=== PATIENT | male | born 1965 | race Caucasian/White ===

== ENCOUNTER 2020-10-03 09:21 | Emergency (ER) | payer SELFPAY ==
[~2020-10-03] VITALS: Ht 185.4 cm; Wt 81.0 kg
[2020-10-03] MEDS ORDERED: cephalexin 500mg capsule PO ONE (09:35)
[2020-10-03] MEDS ORDERED: CEPH-585 PO (09:45)
--- NOTE | 2020-10-03 10:31 | NUR ---
PT MOVED TO ROOM 15, REPORT TO RN, PT IS CALM AND COOPERATIVE, AWARE OF PLAN TO BE EVALUATED BY PROVIDER AND [facility], PT IS AWARE HE NEEDS TO REMAIN IN ROOM, DENIES SUICIDAL\HOMICIDAL THOUGHTS/PLAN
--- NOTE | 2020-10-03 10:50 | NUR ---
[facility] [phone]
[2020-10-03 11:06] LABS: BASOPHILS # (AUTO) 0.1 X10'3 (0-0.2); BASOPHILS % (AUTO) 0.6 % (0-1); EOSINOPHILS % (AUTO) 0.1 % (0-6); HEMATOCRIT 43.4 % (42.0-52.0); HEMOGLOBIN 14.5 g/dl (14.0-17.9); LYMPHOCYTES # (AUTO) 0.9 X10'3 (1.1-4.8); LYMPHOCYTES % (AUTO) 6.6 % (21-51); MEAN CORPUSCULAR HEMOGLOBIN 35.2 PG (27.0-31.0); MEAN CORPUSCULAR HGB CONC 33.3 g/dL (33.0-36.5); MEAN CORPUSCULAR VOLUME 105.6 FL (78-98); MEAN PLATELET VOLUME 7.9 FL (7.4-10.4); MONOCYTES # (AUTO) 1.5 X10'3 (0-0.9); NEUTROPHILS # (AUTO) 11.1 X10'3 (1.8-7.7); NEUTROPHILS % (AUTO) 81.7 % (42-75); PLATELET COUNT 263 X10'3 (140-440); RED BLOOD COUNT 4.11 X10'6 (4.70-6.10); RED CELL DISTRIBUTION WIDTH 13.3 % (11.5-14.5); WHITE BLOOD COUNT 13.6 X10'3 (4.5-11.0)
[2020-10-03 11:16] LABS: ALKALINE PHOSPHATASE 67 IU/L (46-116); eGFR 59 ML/MIN
[2020-10-03 11:25] LABS: ALANINE AMINOTRANSFERASE 22 U/L (12-78); ALBUMIN 4.4 G/DL (3.4-5.0); ALBUMIN/GLOBULIN RATIO 1.3 (1.1-1.5); ANION GAP 13 (8-16); ASPARTATE AMINO TRANSFERASE 38 U/L (10-37); BILIRUBIN,TOTAL 0.9 MG/DL (0.1-1.0); BLOOD UREA NITROGEN 28 MG/DL (7-18); CALCIUM 9.4 MG/DL (8.5-10.1); CHLORIDE 105 MMOL/L (99-107); CREATININE 1.27 MG/DL (0.60-1.10); GLUCOSE 89 MG/DL (70-104); SODIUM 144 MMOL/L (135-145); TOTAL CARBON DIOXIDE 26.2 MMOL/L (24-32); TOTAL PROTEIN 7.7 G/DL (6.4-8.2)
[2020-10-03 11:28] LABS: ETHANOL < 0.010 GM/DL (0.0-0.010)
--- NOTE | 2020-10-03 11:30 | NUR ---
PT IS CALM AND SLEEPING, NO NEEDS AT THIS TIME
[2020-10-03] MEDS ORDERED: potassium Cl 20 mEq SR tablet PO ONE (11:35)
[2020-10-03] MEDS ORDERED: normal saline 1000ML IV soln IVB ONE (12:05)
--- NOTE | 2020-10-03 12:30 | NUR ---
PT IS ASLEEP, REGULAR BREATHING OBSERVED, NO NEEDS AT THIS TIME
--- NOTE | 2020-10-03 13:32 | NUR ---
PT IS SLEEPING, NO NEEDS
--- NOTE | 2020-10-03 14:33 | NUR ---
PT ABLE TO GIVE URINE, NO NEEDS AT THIS TIME
[2020-10-03 15:09] LABS: URINE AMPHETAMINE SCREEN POSITIVE (Neg); URINE BARBITUATE SCREEN NEGATIVE (Neg); URINE BENZODIAZEPINES SCREEN NEGATIVE (Neg); URINE CANNABINOID SCREEN POSITIVE (Neg); URINE COCAINE SCREEN NEGATIVE (Neg); URINE METHADONE SCREEN NEGATIVE (Neg); URINE OPIATE SCREEN NEGATIVE (Neg); URINE PHENCYCLIDINE SCREEN NEGATIVE (Neg)
--- NOTE | 2020-10-03 15:33 | NUR ---
SLEEPING, NO NEEDS
--- NOTE | 2020-10-03 16:33 | NUR ---
NO NEEDS AT THIS TIME
--- NOTE | 2020-10-03 17:45 | NUR ---
PT IS ASLEEP, REGULAR BREATHING PRESENT, NO NEEDS AT THIS TIME
--- NOTE | 2020-10-03 18:00 | NUR ---
The patient was moved to the [facility] to bed 23 and he was cooperative with the move. He was alert and oriented. He stated that currently he denies that he is having any auditory or visual hallucinations. He stated that he felt embarrassed about what had happened. He is aware that he is on a 5150 hold and he has been seen by the [facility]. He denies that he is currently on any medications. He is polite and friendly.
--- NOTE | 2020-10-03 20:19 | NUR ---
THe patient appears to be sleeping.
--- NOTE | 2020-10-03 21:41 | NUR ---
The patient appears to be sleeping
--- NOTE | 2020-10-03 22:01 | NUR ---
Per [facility], Angel Munguia is requesting additional labs including a repeat CBC, CMP and a UA. Dr. Ocampo was made aware.
[2020-10-03 22:31] LABS: BASOPHILS # (AUTO) 0.1 X10'3 (0-0.2); BASOPHILS % (AUTO) 0.6 % (0-1); EOSINOPHILS # (AUTO) 0.1 X10'3 (0-0.9); EOSINOPHILS % (AUTO) 0.4 % (0-6); HEMATOCRIT 41.1 % (42.0-52.0); HEMOGLOBIN 13.7 g/dl (14.0-17.9); LYMPHOCYTES # (AUTO) 1.3 X10'3 (1.1-4.8); MEAN CORPUSCULAR HEMOGLOBIN 35.1 PG (27.0-31.0); MEAN CORPUSCULAR HGB CONC 33.4 g/dL (33.0-36.5); MEAN PLATELET VOLUME 7.9 FL (7.4-10.4); MONOCYTES # (AUTO) 1.6 X10'3 (0-0.9); NEUTROPHILS # (AUTO) 11.7 X10'3 (1.8-7.7); PLATELET COUNT 236 X10'3 (140-440); RED BLOOD COUNT 3.91 X10'6 (4.70-6.10); RED CELL DISTRIBUTION WIDTH 13.3 % (11.5-14.5); WHITE BLOOD COUNT 14.8 X10'3 (4.5-11.0)
[2020-10-03 22:39] LABS: CLARITY,URINE CLEAR (Clear); COLOR,URINE YELLOW (Yellow); GLUCOSE, URINE NEGATIVE (Neg); KETONES,URINE 40 mg/dl (Neg); LEUKOCYTE ESTERASE ,URINE NEGATIVE (Neg); NITRITES, URINE NEGATIVE (Neg); OCCULT BLOOD,URINE MODERATE (Neg); PH,URINE 5.5 (4.8-8.0); PROTEIN,URINE TRACE mg/dl (Neg); UROBILINOGEN,URINE 0.2 E.U/dL (0.2-1.0)
[2020-10-03 22:40] LABS: UA COLLECTION TYPE URINAL
[2020-10-03 22:41] LABS: ALANINE AMINOTRANSFERASE 11 U/L (12-78); ALBUMIN 3.4 G/DL (3.4-5.0); ALBUMIN/GLOBULIN RATIO 1.1 (1.1-1.5); ALKALINE PHOSPHATASE 56 IU/L (46-116); ANION GAP 10 (8-16); ASPARTATE AMINO TRANSFERASE 65 U/L (10-37); BILIRUBIN,TOTAL 1.6 MG/DL (0.1-1.0); BLOOD UREA NITROGEN 19 MG/DL (7-18); BUN/CREATININE RATIO 18.3 (5.4-32.0); CALCIUM 8.8 MG/DL (8.5-10.1); CHLORIDE 106 MMOL/L (99-107); CREATININE 1.04 MG/DL (0.60-1.10); GLUCOSE 105 MG/DL (70-104); POTASSIUM 3.3 MMOL/L (3.5-5.1); SODIUM 143 MMOL/L (135-145); TOTAL PROTEIN 6.4 G/DL (6.4-8.2); eGFR 74 ML/MIN
[2020-10-03 23:27] LABS: BACTERIA,URINE NONE SEEN /HPF (Neg); MUCUS STRANDS FEW /LPF (Neg); SQUAMOUS EPITHELIAL CELL,UR FEW /LPF (FEW)
[2020-10-03 23:28] LABS: CAL OXALATE CRYSTALS FEW /HPF (NEGATIVE); HYALINE CASTS 0-3 /LPF (NEGATIVE); SPERM FEW /HPF (NEGATIVE)
--- NOTE | 2020-10-03 23:45 | NUR ---
New lab results faxed to [facility].
--- NOTE | 2020-10-04 01:04 | NUR ---
THe patient appears to be sleeping
--- NOTE | 2020-10-04 03:55 | NUR ---
The patient appears to be sleeping well
[2020-10-04 05:37] VITALS: BP 134/87
--- NOTE | 2020-10-04 05:53 | NUR ---
The patient moved to the main ER.
--- NOTE | 2020-10-04 09:02 | NUR ---
NURSE TO NURSE COMPLETED BY EMILE RN AT [facility] ([phone]), FACILITY NEEDS COVID TEST DONE AND NOTIFIED OF RESULT BEFORE THE CAN ACCEPT.
--- NOTE | 2020-10-04 10:38 | NUR ---
RN FAXED COVID NEGATIVE RESULTS TO [facility] [phone]. FAX DELIVERY CONFIRMED.
--- NOTE | 2020-10-04 13:05 | NUR ---
RN SPOKE TO EMILE MEDEIROS FROM [facility]. EMILE MEDEIROS, STATED THAT THEY ARE ACCEPTING Pt ANT THAT SHE WILL BE CALLING [facility] TO SET UP TRANSPORT. EMILE WILL CALL BACK ONCE SHE RECIEVES AN ETA FOR TRANSPORT.
--- NOTE | 2020-10-04 13:20 | NUR ---
BREAKING PRIMARY RN, PT GIVEN TRAY CALM, NO NEEDS AT THIS TIME
--- NOTE | 2020-10-04 13:28 | NUR ---
BREAKING PRIMARY RN, PT HAS BEEN ACCEPTED AT [facility], HE WILL BE PICKED UP [phone]
== END 2020-10-04 18:37 ==
LOC: ER 09:23
DX: F29 Unspecified psychosis not due to a substance or known physiological condition (principal); Z20.822 Contact with and (suspected) exposure to COVID-19; F12.90 Cannabis use, unspecified, uncomplicated; F15.90 Other stimulant use, unspecified, uncomplicated; Z72.89 Other problems related to lifestyle; Z79.2 Long term (current) use of antibiotics
CPT/HCPCS: 36415; 80053; 80305; 80320; 81001; 84443; 85025; 87088; 87426; 96360; 99285; J7030